=== PATIENT | male | born 2000 | race Caucasian/White ===

== ENCOUNTER 2022-09-15 15:43 | Emergency (ER) | payer SELFPAY ==
[2022-09-15 15:54] VITALS: BP 136/58; PULSE 54; RESP 16; TEMP 36.1; O2SAT 100
--- NOTE | 2022-09-15 16:32 | ED.SKABFB ---
HPI - Skin/Abscess/Foreign Bdy General Chief complaint: Skin/Abscess/Foreign Body Stated complaint: poison silvestre Time Seen by Provider: 09/15/22 16:32 Source: patient, RN notes reviewed and old records reviewed Mode of arrival: ambulatory Limitations: no limitations History of Present Illness HPI narrative: 22 year year old male presents to the [facility] with concerns for poison silvestre to his legs that he noticed and been treating since last Saturday, 1 week. Yesterday started with a line of redness to the left lateral face adjacent to the eye without eye involvement. Related Data Allergies Allergy/AdvReac Type Severity Reaction Status Date / Time No Known Allergies Allergy Mild Verified 09/15/22 16:33 Review of Systems Review of Systems: All systems reviewed & are unremarkable except as noted in HPI and below Constitutional: Constitutional: Reports no additional constitutional complaints Eyes: Eyes: Reports no additional eye complaints ENT: Reports system reviewed and no additional complaints, except as documented Cardiovascular: Cardiovascular: Reports no additional cardiovascular complaints, Denies chest pain and Denies dyspnea Respiratory: Respiratory: Reports no additional respiratory complaints, Denies chest congestion, Denies cough and Denies dyspnea Gastrointestinal: Gastrointestinal: Reports no additional gastrointestinal complaints, Denies abdominal pain, Denies nausea and Denies vomiting Musculoskeletal: Musculoskeletal: Reports no additional musculoskeletal complaints Integumentary/Breasts: Skin/Breast: Reports as per HPI Neurologic: Reports system reviewed and no additional complaints, except as documented Psychiatric: Psychiatric: Reports no additional psychiatric complaints Allergic/Immunologic: Allergic/Immunologic: Reports no additional allergic/immunologic complaints PMFSH Comments At the time of my signature, I reviewed and agree with the nursing past medical, surgical, social, and family history. There is no relevant family history pertinent to the patient complaint. Exam Const: General: cooperative, healthy appearing, comfortable, no acute distress, well developed, alert and well nourished Nutritional Appearance: well nourished Orientation/consciousness: patient oriented x3 Limitations: no limitations HENMT: Head: normal to inspection Head images: 1. Erythema with vesicular areas. No eye involvement Ears: hearing grossly normal bilaterally and external ears normal Face/Nose/Sinus: Normal external nose present, Normal nares present, Normal nasal mucous membranes and turbinates present and normal facial exam Face and sinus: normal facial exam Mouth: Yes Normal oral and palatal mucosa present, Yes lip normal and Yes moist mucous membranes Throat: posterior oropharynx normal and uvula midline Eyes: General: appearance normal, both eyes and all related structures Alignment and Position: alignment normal Periorbital: periorbital findings normal Conjunctivae: conjunctivae normal Pupils: Equal, round and reactive pupils present EOM: EOMs intact bilaterally Neck: Neck: normal visual inspection, full ROM, no lymphadenopathy and no meningeal signs Chest: Chest palpation & inspection: normal inspection of the chest Resp: Effort & Inspection: normal respiratory effort and able to speak in complete sentences Auscultation: clear to auscultation bilaterally, no crackles, no rales, no rhonchi and no wheezes Cardio: Rate: regular rate Rhythm: regular rhythm Back/Spine/Pelvis: Cervical Spine: cervical ROM normal Thoracic/Lumbar Spine: No thoracic spinal tenderness Skin: General skin exam: normal color and no rashes or lesions noted Lesions: no lesions Rashes: no rashes Wounds: no wounds Other: Right lower leg multiple areas of vesicular linear rash. Erythema noted. Erythema to the left face Neuro: General: patient oriented x3, gait normal, tone normal, moves all extremities and no mening
== END 2022-09-15 16:48 | disposition home or self-care (01) ==
PROVIDERS: Emergency Provider Nurse Practitioner
DX: L25.5 Unspecified contact dermatitis due to plants, except food (principal)
CPT/HCPCS: 99213; G0463

== ENCOUNTER 2024-03-02 21:40 | Observation (INO) | payer BC, SELFPAY ==
--- NOTE | ~2024-03-02 | CT_ITS ---
EXAMINATION: CT abdomen pelvis w con DATE: 03/02/2024 23:14 INDICATION: Lower abdominal pain TECHNIQUE: Computed tomography (CT) of the abdomen and pelvis was performed with 100 mL Omnipaque-350 intravenous contrast. Automated exposure control and iterative reconstruction technique were employe d. The dose-length product was 691.63 mGy-cm. COMPARISON: None FINDINGS: Lung bases are clear. Heart size is normal. No pericardial or pleural effusion. Small region of focal hepatic steatosis at the ligamentum teres. Gallbladder, pancreas, bilateral adrenal glands and kidne ys are normal. 1 cm low-attenuation splenic cyst or hemangioma. Prominent appendiceal wall thickening and surrounding periappendiceal inflammatory stranding consistent with acute appendicitis. There are multiple small likely reactive ileocolic chain lymph nodes. Small amount of likely reactive free flu id in the deep pelvis. No organized abscess or free intraperitoneal gas. Bowels are otherwise unremar kable. Bladder is normal. No pathologically enlarged abdominal or pelvic lymphadenopathy. Bones are u nremarkable. IMPRESSION: 1. Acute appendicitis. Reviewed, dictated and finalized at location A. IMPRESSION: 1. Acute appendicitis.
[2024-03-02 21:46] VITALS: BP 124/66; PULSE 74; RESP 20; TEMP 36.8; O2SAT 100
[2024-03-02 22:26] LABS: Basophils Percent Auto 0.4 % (0.2-1.2); Eosinophils Absolute Auto 0.1 K/mm3 (0-0.3); Eosinophils Percent Auto 0.7 % (0-4.4); Hematocrit 43.2 % (42.0-52.0); Hemoglobin 14.6 g/dL (14.0-18.0); Immature Granulocyte Absolute 0.02 K/mm3 (0.00-0.031); Immature Granulocyte Percent A 0.2 % (0-0.5); Lymphocytes Absolute Auto 1.49 K/mm3 (0.9-3.2); Lymphocytes Percent Auto 15.8 % (18.3-44.2); Mean Corpuscular HGB Conc 33.8 g/dl (32-36); Mean Corpuscular Hemoglobin 31.3 pg (26-34); Mean Corpuscular Volume 92.5 fl (80-100); Mean Platelet Volume 9.4 fl (7.4-10.4); Monocytes Absolute Auto 0.8 K/mm3 (0.1-0.6); Monocytes Percent Auto 8.9 % (2.6-8.5); Platelet Count Result 243 k/mm3 (150-375); Red Blood Count 4.67 M/mm3 (4.6-6.20); Red Cell Distribution Width 12.3 % (11.5-14.5); White Blood Count 9.5 K/mm3 (4.5-10.0)
[2024-03-02 22:32] LABS: Add Urine Microscopic? YES; Appearance Urine Clear (Clear); Bacteria Urine None Seen /hpf; Bilirubin Urine Negative (Negative); Blood Urine Negative (Negative); Color Urine Yellow (Yellow); Glucose Urine UA Negative (Negative); Ketones Urine Negative (Negative); Leukocyte Esterase Ur 1+ LEU/UL (Negative); Nitrate Urine Negative (Negative); Non Pathogenic Casts 0-2; Protein Urine Negative (Negative); RBC Urine 0-2 /hpf (0-2); Specific Grav Ur 1.018 (1.001-1.035); Squamous Epithelial Cell Urine None Seen /hpf (Few); Urobilinogen Urine 0.2 mg/dL (<2.0); pH Urine 6.5 (5.0-9.0)
[2024-03-02] MEDS: KETOROLAC 30 MG/ML VIAL (*BKC) 15 MG IV PUSH (22:33)
[2024-03-02] MEDS: FAMOTIDINE 20 MG/2 ML VIAL IV PUSH (22:33)
[2024-03-02 22:47] LABS: Alanine Aminotransferase 23 U/L (6-50); Albumin Level 4.6 g/dL (3.5-5.1); Alkaline Phosphatase 84 U/L (38-126); Anion Gap 9 mmol/L (4-12); Aspartate Amino Transferase 30 U/L (17-59); Bilirubin,Total 0.3 mg/dL (0.2-1.3); Blood Urea Nitrogen 15 mg/dL (9-20); Calcium 9.5 mg/dL (8.4-10.2); Carbon Dioxide 31 mmol/L (22-30); Chloride 100 mmol/L (98-107); Estimated CRCL calculation 108 ml/min; Estimated Glomerular Filt Rate > 60; Glucose 117 mg/dL (65-110); Lipase 54 U/L (23-300); Potassium 3.5 mmol/L (3.4-5.0); Sodium 140 mmol/L (137-145)
--- NOTE | 2024-03-02 22:55 | ED.ABDPAIN ---
HPI - Abdominal Pain General Chief Complaint: Abdominal Pain <KALEE Francois Last Filed: 03/03/24 00:23> Stated Complaint: abdominal pain <KALEE Francois Last Filed: 03/03/24 00:23> Time Seen by Provider: 03/02/24 21:52 <KALEE Francois Last Filed: 03/03/24 00:23> History of Present Illness HPI narrative: 24-year-old male no past medical history presents with his mother at bedside for abdominal pain that started 3 days ago. Patient states the pain was in his epigastrium is now in his lower abdomen. He states the pain is better when he lay still worse when he is moving. He denies other aggravating or alleviating factors. Denies fever, N/V/D, dysuria or hematuria. Last bowel movement was today and normal. Denies prior abdominal surgeries. <KALEE Francois Last Filed: 03/03/24 00:23> Related Data Allergies/Adverse Reactions: Allergies Allergy/AdvReac Type Severity Reaction Status Date / Time No Known Allergies Allergy Mild Verified 03/02/24 21:46 <KALEE Francois Last Filed: 03/03/24 00:23> Review of Systems Review of Systems: All systems reviewed & are unremarkable except as noted in HPI and below <KALEE Francois Last Filed: 03/03/24 00:23> Exam Narrative: GENERAL: Well-appearing, well-nourished, and in no acute distress. HEAD: Normocephalic, atraumatic. ENT: Nares clear, no rhinorrhea or epistaxis. Mucous membranes moist. NECK: Supple. CHEST: Clear to auscultation. No respiratory distress. HEART: Regular rate and rhythm. No murmur heard. Normal peripheral pulses. ABDOMEN: Quiet bowel sounds. Abdomen soft with tenderness in the lower quadrants. No rebound, guarding or rigidity. Negative Toledo's sign. No CVA tenderness. EXTREMITIES: Normal range of motion. No edema. SKIN: Warm, dry, no rash. NEURO: No focal deficits. Alert and oriented x3 <KALEE Francois Last Filed: 03/03/24 00:23> Course PRINT LINE OPERATOR/PA Physician Supervision For this patient encounter, I reviewed the PRINT LINE OPERATOR or PA documentation, treatment plan, and medical decision making and had [id number] time with this patient. I performed all aspects of the MDM as documented. <Romain Jalloh MD - Last Filed: 03/03/24 01:13> Vital Signs Vital signs: Vital Signs Temperature 98.2 F 03/02/24 21:46 Pulse Rate 74 03/02/24 21:46 Respiratory Rate 20 03/02/24 21:46 Blood Pressure 124/66 03/02/24 21:46 Pulse Oximetry 100 03/02/24 21:46 Oxygen Delivery Room Air 03/02/24 21:46 Temperature 98.2 F 03/02/24 21:46 Pulse Rate 65 03/03/24 01:09 Respiratory Rate 14 03/03/24 01:09 Blood Pressure 116/61 03/03/24 01:09 Pulse Oximetry 97 03/03/24 01:09 Oxygen Delivery Room Air 03/02/24 21:46 <Mila Cope PA-C - Last Filed: 03/03/24 00:23> Vital Signs Temperature 98.2 F 03/02/24 21:46 Pulse Rate 74 03/02/24 21:46 Respiratory Rate 20 03/02/24 21:46 Blood Pressure 124/66 03/02/24 21:46 Pulse Oximetry 100 03/02/24 21:46 Oxygen Delivery Room Air 03/02/24 21:46 Temperature 98.2 F 03/02/24 21:46 Pulse Rate 65 03/03/24 01:09 Respiratory Rate 14 03/03/24 01:09 Blood Pressure 116/61 03/03/24 01:09 Pulse Oximetry 97 03/03/24 01:09 Oxygen Delivery Room Air 03/02/24 21:46 <Romain Jalloh MD - Last Filed: 03/03/24 01:13> MDM - Abdominal Pain MDM Narrative Medical decision making narrative: 24-year-old male presents to the emergency department for abdominal pain for 3 days. Vitals are stable. Patient is afebrile nontoxic on exam. Exam significant for tenderness to the lower abdomen. Will obtain lab work and CT abdomen pelvis. Will provide Pepcid and Toradol and re-evaluate. CBC without leukocytosis. Chemistries largely unremarkable. UA with 6-10 wbc's 1+ leuk esterase, no bacteria. Patient denies symptoms of UTI. Urine culture pending. CT abdomen pe
[2024-03-02] MEDS: MORPHINE SULFATE (*CRX) 4 MG/ML INJ IV PUSH (23:51)
[2024-03-02 23:53] VITALS: BP 125/77; PULSE 69; RESP 20; O2SAT 99
[2024-03-02] MEDS: PIPERACILLN/TAZ 3.375GM/NS50ML 3.375 GM/50 ML BAG IVPB (23:59)
[2024-03-03] VITALS (18 sets, daily range): BP systolic 107–137; BP diastolic 59–89; PULSE 65–82; RESP 12–18; TEMP 36.2–36.9; O2SAT 94–100; BMI 28.8
--- NOTE | 2024-03-03 01:31 | ADMGEN ---
This patient, Vic Rider, was admitted to [facility] Surg Room 321-02. Patient/family oriented to hospital policies and general routines including ID bracelet, bed and alarms, visiting hours, pain management, procedures, bathroom and other care routines, personal items, smoking policy, room service/diet, and visiting hours. Information on how to activate the Rapid Response Team has been discussed. Patient/Family are encouraged to report perceived risks to care and to ask questions if they do not understand what they are told or what they should do.
[2024-03-03] MEDS: MORPHINE SULFATE (*CRX) 4 MG/ML INJ IV PUSH ×4 (01:46→09:20)
[2024-03-03] MEDS: SODIUM CHLORIDE 0.9% IV 1,000 ML 125 ML IV CONT ×2 (01:52→08:19)
[2024-03-03] MEDS: PIPERACILLN/TAZ 3.375GM/NS50ML 3.375 GM/50 ML BAG IVPB ×2 (05:16→11:02)
--- NOTE | 2024-03-03 10:08 | PM.IMHP ---
H&P: HPI History of Present Illness Date/Time: 03/03/24 10:08 Chief Complaint: Abdominal pain Narrative: This is a 24-year-old man who presented to the ED last night for evaluation of right lower quadrant abdominal pain. He reports mild upper abdominal pain starting 3 days ago. Pain localized to the right lower quadrant and progressively became more severe yesterday. No other associated symptoms. In the ED, afebrile and vital signs were stable. Workup showed CT evidence of acute appendicitis. Labs were unremarkable with a white blood cell count of 9500. Our service was consulted by the ED provider and he was admitted in this setting for surgical evaluation. The patient is seen this morning on the medical floor. No previous abdominal surgeries. Denies ever having pain like this in the past. Denies any other medical history. Review of Systems Review of Systems: All systems reviewed & are unremarkable except as noted in HPI and below PMFSH Family History Family History Mother Diverticulitis Father Diverticulitis Social History Social History Smoking status: Never smoker Alcohol intake: current Drinks per week: 8 Substance use type: marijuana Other substance usage details: rarely smokes marijuana Do You Feel Safe in your Home?: Yes Lack of Transportation: No Lack of Food: Never True Current Housing: I Have Housing Concerned About Future Housing: No Difficulty Paying Gas/Electric Bills: No Difficulty Paying for Meds: No Currently Unemployed: No Education: High School Diploma/GED Difficulty w/ Childcare or Family Care: No Spiritual care concerns: No Meds Home Medications and Allergies Home Medications Medication Instructions Recorded Confirmed Type No Home Medications 03/03/24 03/03/24 History Allergies Allergy/AdvReac Type Severity Reaction Status Date / Time No Known Allergies Allergy Mild Verified 03/03/24 01:21 Vital Signs Vital Signs - 24 hr 03/02/24 21:46 03/02/24 23:53 03/03/24 01:09 Temperature 98.2 F Pulse Rate 74 69 65 Respiratory Rate 20 20 14 Blood Pressure 124/66 125/77 116/61 Pulse Oximetry 100 99 97 Oxygen Delivery Room Air 03/03/24 01:37 03/03/24 01:45 03/03/24 05:31 Temperature 97.7 F 97.6 F Pulse Rate 73 72 Respiratory Rate 16 16 Blood Pressure 135/76 114/59 L Pulse Oximetry 98 100 Oxygen Delivery Room Air 03/03/24 08:00 Temperature Pulse Rate Respiratory Rate Blood Pressure Pulse Oximetry Oxygen Delivery Room Air Exam Const: General: comfortable and no acute distress Nutritional Appearance: average body habitus Orientation/consciousness: patient oriented x3 HENMT: Head: normocephalic and atraumatic Ears: hearing grossly normal bilaterally Mouth: Yes moist mucous membranes Eyes: General: appearance normal, both eyes and all related structures Pupils: Equal, round and reactive pupils present Neck: Neck: normal visual inspection and full ROM Resp: Effort & Inspection: no respiratory distress Auscultation: clear to auscultation bilaterally Cardio: Rate: regular rate Rhythm: regular rhythm Heart sounds: S1 normal heart sound present and S2 normal heart sound present Peripheral pulses: Peripheral pulses 2+ throughout GI: Inspection: non-distended and no visible herniation GI Palp: Yes Soft to palpation, Yes Tenderness to palpation present (GI) (Mild diffuse tenderness, with focal tenderness & voluntary guarding in RLQ), Yes Guarding due to palpation present (GI) (RLQ), Yes No hepatosplenomegaly present, No Palpable mass present (No palpable mass) and No Rebound tenderness present Auscultation: normal bowel sounds Rectal Exam: deferred Skin: General skin exam: normal color Neuro: General: moves all extremities and no focal motor deficits Speech: normal speech Motor exam (neuro): 5/5
--- NOTE | 2024-03-03 11:07 | PC.NURSE ---
To OR per stretcher.
[2024-03-03] MEDS: fentaNYL CITRATE INJ (*CRX) 100 MCG/2 ML VIAL 25 MCG IV PUSH ×5 (11:48→15:27)
--- NOTE | 2024-03-03 12:39 | WPDANESEPPF ---
Anes - Initial Pre Proc Eval Procedure: Operation Date: 03/03/24 13:00 Proposed Procedures p Laparoscopic Appendectomy - Yudith Fofana MD Date/Time: 03/03/24 12:39 Surgeon: Yudith Fofana MD Pre Op Diagnosis: Acute appendicitis Patient Data Age: 24 Gender: M Height: 1.73 m Weight: 86.1 kg Last Vital Signs Temp 97.2 F L 03/03/24 11:37 Pulse 66 03/03/24 11:37 Resp 14 03/03/24 11:37 BP 113/61 03/03/24 11:37 Pulse Ox 100 03/03/24 11:37 O2 Del Method Room Air 03/03/24 11:37 Allergies Allergy/AdvReac Type Severity Reaction Status Date / Time No Known Allergies Allergy Mild Verified 03/03/24 11:54 Home Medications Medication Instructions Recorded Confirmed Type No Home Medications 03/03/24 03/03/24 History Laboratory Tests 03/02/24 22:18 WBC 9.5 K/mm3 (4.5-10.0) RBC 4.67 M/mm3 (4.6-6.20) Hgb 14.6 g/dL (14.0-18.0) Hct 43.2 % (42.0-52.0) MCV 92.5 fl (80-100) MCH 31.3 pg (26-34) MCHC 33.8 g/dl (32-36) RDW 12.3 % (11.5-14.5) Plt Count 243 k/mm3 (150-375) MPV 9.4 fl (7.4-10.4) Immature Gran % (Auto) 0.2 % (0-0.5) Neut % (Auto) 74.0 H % (45.5-73.1) Lymph % (Auto) 15.8 L % (18.3-44.2) [place] % (Auto) 8.9 H % (2.6-8.5) Eos % (Auto) 0.7 % (0-4.4) Baso % (Auto) 0.4 % (0.2-1.2) Lymph # (Auto) 1.49 K/mm3 (0.9-3.2) [place] # (Auto) 0.8 H K/mm3 (0.1-0.6) Eos # (Auto) 0.1 K/mm3 (0-0.3) Baso # (Auto) 0.0 K/mm3 (0.0-0.1) Abs Immat Gran (auto) 0.02 K/mm3 (0.00-0.031) Absolute Neuts (auto) 7.0 H K/mm3 (1.3-6.7) Absolute Nucleated RBC 0.000 K/mm3 (0.0-0.012) Nucleated RBC % 0.0 % (0.0-0.2) Sodium 140 mmol/L (137-145) Potassium 3.5 mmol/L (3.4-5.0) Chloride 100 mmol/L (98-107) Carbon Dioxide 31 H mmol/L (22-30) Anion Gap 9 mmol/L (4-12) BUN 15 mg/dL (9-20) Creatinine 0.90 mg/dL (0.7-1.3) Estim Creat Clear Calc 108 ml/min Estimated GFR > 60 (59 - ) Glucose 117 H mg/dL (65-110) Calcium 9.5 mg/dL (8.4-10.2) Total Bilirubin 0.3 mg/dL (0.2-1.3) AST 30 U/L (17-59) ALT 23 U/L (6-50) Alkaline Phosphatase 84 U/L (38-126) Total Protein 8.0 g/dL (6.3-8.2) Albumin 4.6 g/dL (3.5-5.1) Lipase 54 U/L (23-300) Urine Color Yellow (Yellow) Urine Appearance Clear (Clear) Urine pH 6.5 (5.0-9.0) Ur Specific Erin 1.018 (1.001-1.035) Urine Protein Negative mg/dL (Negative) Urine Glucose (UA) Negative mg/dL (Negative) Urine Ketones Negative mg/dL (Negative) Ur Blood (Man) Negative (Negative) Urine Nitrate Negative (Negative) Urine Bilirubin Negative (Negative) Urine Urobilinogen 0.2 mg/dL (<2.0) Leukocyte Esterase Rfl 1+ H LATANYA/UL (Negative) Urine RBC 0-2 /hpf (0-2) Urine WBC 6-10 H /hpf (0-3) Ur Squamous Epith Cells None seen /hpf (Few) Urine Bacteria None seen /hpf Urine Casts 0-2 Patient hx anesthesia problems: none Family hx anesthesia problems: none Results Review: All pre-operative results and documents have been reviewed as part of the pre-operative evaluation. [facility] Family History Family History Mother Diverticulitis Father Diverticulitis Social History Social History Smoking status: Never smoker Alcohol intake: current Drinks per week: 8 Substance use type: marijuana Other substance usage details: rarely smokes marijuana Do You Feel Safe in your Home?: Yes Lack of Transportation: No Lack of Food: Never True Current Housing: I Have Housing Concerned About Future Housing: No Difficulty Paying Gas/Electric Bills: No Difficulty Paying for Meds: No Currently Unemployed: No Education: High School D
--- NOTE | 2024-03-03 12:57 | WPDHPUPDATE1 ---
History and Physical Update Update Date/Time: 03/03/24 12:57 History and Physical has been reviewed, including an updated exam of the patient. There are NO changes in the patient's condition. Risks, benefits, and alternatives have been discussed and questions answered. Patient agrees to proceed with procedure.
[2024-03-03] MEDS: BUPIVACAINE/EPINEPHRINE 0.5% 50 ML VIAL 30 ML INFILTRATE (13:41)
--- NOTE | 2024-03-03 13:53 | W.PM.PROC2 ---
Procedure Note - Detailed Date of Procedure 03/03/24 Pre-op Diagnosis Acute appendicitis Post-op Diagnosis Same Procedure Performed laparoscopic appendectomy Surgeon Yudith Fofana MD Anesthesia General Indications 24-year-old male presenting to the emergency department acute appendicitis Findings acute appendicitis no evidence of perforation Description of Procedure The patient was taken to the operating room and placed in the supine position. After adequate induction of general anesthesia, the patient was prepped and draped in the normal sterile fashion. A time-out was then done to verify the patient's identity, as well as the procedure being performed. I began by making a 5 mm incision in the infraumbilical region, through this a Veress needle was placed in the peritoneal cavity. CO2 gas was then insufflated and after adequate pneumoperitoneum was achieved the Veress needle was removed. Then placed a 5 mm Optiview trocar under direct visualization into the peritoneal cavity. I then insufflated through this trocar site and the endoscope was placed into the trocar. Under direct visualization, I placed 2 further ports, a 5 mm suprapubic port as well as an additional 12 mm port in the left lower abdomen. At this point identified the cecum, I retracted the cecum both medially and superiorly allowing me to expose the appendix. The appendix was noted to be very dilated and inflamed. The appendix was noted to be very adherent to the right lateral sidewall as well as the ileum. I was able to bluntly dissect the appendix from these adhesions. I then was able to locate the base of the appendix with the cecum. I created a window with the [place] dissector between the appendix itself and the mesoappendix. I then transected the mesoappendix with a white vascular staple load. The Endo-ZULEMA was then reloaded with a blue staple load and I transected the base of the appendix. Once the specimen was completely detached, an endo-pouch was placed into the 12 mm port site and the specimen was removed through the endo-pouch. The appendiceal specimen will be sent to pathology for further review. I then copiously irrigated the right lower quadrant. Hemostasis was noted at both staple lines no other pathology was seen in this area. I then moved the camera to the suprapubic port to check our its port of entry. No iatrogenic injury or other pathology was noted in the upper abdomen. I then closed the 12 mm port site with a Mariano code and 0 Vicryl suture under direct visualization. At this point, the abdomen was desufflated and all ports were removed. All port sites were closed with 4 Monocryl subcuticular suture. Dermabond was placed on all wounds. The patient tolerated the procedure well and was extubated in the operating room postop. He will be sent to the recovery room in stable condition. Estimated Blood Loss 10 Drains No Packing No Pathology Yes Complications No immediate complications Condition Stable Disposition PACU [facility] Billing Surgery - Charge Forward: Surgery Billing
[2024-03-03] MEDS: LACTATED RINGERS 1,000 ML 30 ML IV CONT ×2 (14:02)
--- NOTE | 2024-03-03 15:36 | PC.NURSE ---
Returned to room per stretcher from OR.
[2024-03-03] MEDS: HYDROcodone/acetaminophen (*CRX) 5-325 MG TABLET 1 TAB PO ×2 (15:52→20:09)
[2024-03-04] MEDS: HYDROcodone/acetaminophen (*CRX) 5-325 MG TABLET 1 TAB PO ×2 (05:27→09:43)
[2024-03-04 05:33] VITALS: BP 116/63; PULSE 72; RESP 16; TEMP 36.1; O2SAT 99
[2024-03-04 08:00] VITALS: BP 125/66; PULSE 61; RESP 20; TEMP 36.5; O2SAT 98
--- NOTE | 2024-03-04 09:41 | PM.DS ---
DS: Admitting Diagnosis Discharge Date 03/04/24 Admitting Diagnosis acute appendicitis DS: Discharge Diagnosis Discharge Diagnosis (1) Acute appendicitis: Qualifiers: Acute appendicitis type: with localized peritonitis Appendicitis abscess presence: without abscess Appendicitis gangrene presence: without gangrene Appendicitis perforation presence: without perforation Qualified Code(s): K35.30 - Acute appendicitis with localized peritonitis, without perforation or gangrene Code(s): K35.80 - Unspecified acute appendicitis Status: Acute Assessment and Plan: doing well, home with p.o. analgesia and routine postoperative care, follow-up 2 weeks, path pending DS: Summary Hospital Course Reason for hospitalization: acute appendicitis Hospital Course: The patient is a 24-year-old male presenting to the emergency department complaining of severe right lower quadrant abdominal pain. Workup in the emergency department, including CT scan, was significant for acute appendicitis. Patient was admitted to the surgical service and started on IV antibiotics. Upon evaluation, it was decided the patient would need urgent appendectomy. Patient was taken to the operating room laparoscopic appendectomy was performed. Please see full operative report for details of that procedure. Postoperatively, the patient did well was transferred back to the surgical floor. On postoperative day 1. , the patient reports that he is sore from the incisions however has been able to be up ambulatory without issue. He is tolerating a diet and his pain is controlled with p.o. analgesia. This time he will be discharged home with p.o. ZULEMA instructions for routine postoperative care. He will follow up with me in 2 weeks. Status at Discharge Functional status at discharge: independent ambulation Overall status at discharge: patient is progressing back to baseline Time Spent with Patient Time attestation: Total time spent providing and/or coordinating discharge services: Time spent: Less than 30 minutes Exam Const: General: cooperative, comfortable and no acute distress Resp: Auscultation: clear to auscultation bilaterally Cardio: Rate: regular rate Rhythm: regular rhythm GI: Inspection: normal to inspection, distended and incision GI Palp: Yes abdominal tenderness, Yes Soft to palpation and Yes Tenderness to palpation present (GI) DS: Data Data Completed and Pending Pending studies at discharge: Pending at discharge 03/03/24 13:35 Surgical [PTH] Routine Discharge Plan Discharge Attending physician on discharge: Yudith Fofana Consulting providers: Ronnie Green Discharging Clinician: Yudith Fofana Anticipated Discharge Date/Time: 03/04/24 11:00 Patient Disposition: Home, Self-Care Activity: as tolerated Diet: as tolerated Wound Care Instructions: incision open to air Discharge Instructions: DISCHARGE INSTRUCTION SHEET FOR HERNIA, GALLBLADDER AND APPENDIX SURGERIES DR. FOFANA PATIENT TO TAKE HOME 1. May shower in 24 hours, no soaking in bath x 2weeks. 2. Call office for: Wound increasingly painful or bleeding Vomiting Fever of greater than 101 degrees 3. If no bowel movement for three days, take 1 oz. (30 ml) Milk of Magnesia or MiraLax 17g 1 to 2 times daily. 4. No heavy lifting > 10-15 pounds x 6 weeks for hernia repairs and 2 weeks for laparoscopic cholecystectomy or appendectomy. 5. No driving for 3 days or while taking narcotic pain medications. 6. Ice to surgical site for 48 hours (30 min on, then 30 min off). 7. Up walking 10-30 minutes three times per day. 8. Resume previous home medications. 9. Follow-up 10-14 days in office for wound check or as previously scheduled. ([phone]) 10. Oral pain medications prescription to be sent to pharmacy. Take Tylenol 500mg every 6 hours and Ibuprofen 600mg every
== END 2024-03-04 10:05 | disposition home or self-care (01) ==
LOC: ANHED 03-03 00:21 → ANH3MEDSUR 03-03 00:58
PROVIDERS: Emergency Medicine; Admitting Provider Surgery; Emergency Provider Physician Assistant; Visit Provider Surgery
PROC: 0DTJ4ZZ Resection of Appendix, Percutaneous Endoscopic Approach (ICD-10-PCS; CPT 44970; principal; 2024-03-03 13:00)
DX: K35.80 Unspecified acute appendicitis (principal)
CPT/HCPCS: 44970; 36415; 74177; 80053; 81001; 83690; 85025; 87086; 88304; 96365; 96375; 99285; A9270; G0378; J1100; J1885; J2250; J2270; J2405; J2543; J2704; J3010; J7030; J7120; Q9967